=== PATIENT | female | born 1975 | race Caucasian/White ===

== ENCOUNTER 2016-07-17 12:44 | Emergency (ER) | payer MEDICAID ==
[2016-07-17 12:47] VITALS: BP 131/76; BMI 31.9
[2016-07-17] MEDS ORDERED: ADRENALINE CHL INJ IM ONE (13:29)
[2016-07-17] MEDS ORDERED: SOLU-Medrol 125 MG VIAL IVP ONE (13:29)
--- NOTE | 2016-07-17 13:32 | DR.GENAD ---
HPI - PCP Primary Care Physician: NFD - HPI Comment HPI Comment: EXPOSE TO CLEANIONG SOLUTION AND NOW EYES AND LIPS ARE SWOLLEN ANS THROAT IS TIGHT. NO SOB. - Complaint/Symptoms Chief Complaint Doctors Comments: ALLERGIC REACTION TO CLEANING SOLUTION. Chief Complaint:: PT C/O HAVING A ALLERGIC REACTION. PT STATES SHE HAVE SEVERE ALLERGIES. PT STATES SHE CHANGED HER CLEANING SUPPLIES AT HOME AND SHE BEGAN TO HAVE SWELLING IN THE EYES AND LIP SWELLING. PT STATES SHE IS ALLERGIC TO BENADRYL - Nurses notes reviewed Nurses Notes Review: Yes - Source History Provided: Patient - Mode of Arrival Mode of Arrival: Ambulatory - Timing Onset of Chief Complaint: 07/16/16 Came on: Suddenly - Duration Duration: Constant Duration: Hours PMH - PMH Past Medical History: Yes Past Medical History: Asthma Past Surgical History: Yes Surgical History: , Hysterectomy - Family History History of Family Medical Conditions: Yes Family Medical History: Diabetes Mellitus, Cancer, Heart Failure, Hypertension - Social History Does patient currently use any type of tobacco product: Yes Have you used tobacco products in the last 12 months: Yes Type of Tobacco Use: Cigarettes Does any household member use tobacco: Yes Alcohol Use: None Do you use any recreational Drugs:: No Lives With: Family Lives Where: Home - infectious screening In the last 2 months have you had wt loss of >10#?: NO Have you had fever, night sweats or hemotysis?: No Have you traveled outside the country in the last 6 months?: No Isolation: Standard ROS - Review of Systems Constitutional: No Symptoms Reported Eyes: No Symptoms Reported ENTM: No Symptoms Reported, Throat Pain (TIGHT). negative: Ear Pain, Nose Discharge, Nose Congestion, Mouth Swelling (LIPS SWOLLEN.) Respiratoy: Non-Productive Cough. negative: Short of Breath, Wheezing, Hemoptysis Cardiovascular: No Symptoms Reported. negative: Chest Pain Gastrointestinal/Abdominal: No Symptoms Reported. negative: Abdominal Pain, Diarrhea, Nausea, Vomiting Genitourinary: No Symptoms Reported. negative: Dysuria, Frequency, Hematuria Neurological: No Symptoms Reported. negative: Headache, Weakness, Dizziness Musculoskeletal: No Symptoms Reported Integumentary: No Symptoms Reported Hematologic/Lymphatic: No Symptoms Reported Endocrine: No Symptoms Reported All Other Systems: Reviewed and Negative PE - Vital Signs Vitals: Temperature 98.2 F Pulse Rate 78 Respiratory Rate 20 Blood Pressure 131/76 O2 Sat by Pulse Oximetry 96 - General Limitations: No Limitations General Appearance: Alert - Head Head Exam: Other (LIPS SWOLLEN) - Eyes Eye exam: Periorbital Swelling - ENT ENT Exam: Normal External Ear Exam External Ear Exam: Normal External Inspection TM/Canal Exam: Bilateral Normal Nose Exam: Normal Nose Exam Mouth Exam: Lip Swelling. negative: Trismus, Tongue Swelling Throat Exam: Normal Inspection. negative: Muffled Voice - Neck Neck Exam: Normal Inspection - Chest Chest Inspection: Symmetric Chest Wall Rise - Respiratory Respiratory Exam: negative: Chest Wall Tenderness, Respiratory Distress Respiratory Exam: Bilateral Rhonchi, Lower Rhonchi - Cardiovascular Cardiovascular Exam: Regular Rate, Normal Rhythm, Normal Heart Sounds - Abdominal Exam Abdominal Exam: Normal Bowel Sounds, Soft. negative: Tenderness - Extremities Extremities Exam: Normal Inspection - Back Back Exam: Normal Inspection - Neurologic Neurological Exam: Alert, Oriented X3, Normal Gait, Reflexes Normal. negative: CN II-XII Intact, Motor Sensory Deficit - Psychiatric Psychiatric Exam: Anxious - Skin Skin Exam: Erythema MDM - Differential Diagnosis Differential Diagnosis: ALLERGIC REACTION. Course - Treatment Treatment: SEE ORDERS. MED IN ED. PATIENT FEELING BETTER - Education/Counseling Education/Counseling: Patient, Education Educated On: Treatment, Diagnosis, Needs for Follow Up - Diagnosis Discharge Problem: Allergic reaction Qualifiers: Encounter type: initial encounter Qualified Code(s): T78.40XA - Allergy, unspecified, initial encounter - Discharge Plan Disposition: 01 HOME, SELF-CARE Condition: Stable Prescriptions: Methylprednisolone Dosepak 4Mg [MEDROL DOSEPAK (4 mg tab x 21)] 1 pa PO ONCE # 1 pa - Follow ups/Referrals Follow ups/Referrals: NFD,None [Primary Care Provider] - 3 days - Instructions Instructions: Allergies, [id number], Angioedema, [id number] Additional Instructions: RETURN TO ED IF WORSE.
[2016-07-17] MEDS ORDERED: SOLU-Medrol 125 MG VIAL ONE (13:45)
[2016-07-17] MEDS ORDERED: ADRENALINE CHL INJ ONE (13:45)
== END 2016-07-17 14:46 | disposition home or self-care (01) ==
LOC: ER 12:51
DX: T78.40XA Allergy, unspecified, initial encounter (principal)
CPT/HCPCS: 96365; 96372; 99283; A4222; J0170; J2930

== ENCOUNTER 2016-11-28 02:09 | Emergency (ER) | payer SELFPAY ==
[2016-11-28 02:17] VITALS: BP 134/93; BMI 30.4
[2016-11-28] MEDS ORDERED: TORADOL 60 MG VIAL IM ONE (02:34)
[2016-11-28] MEDS ORDERED: DECADRON INJ IM ONE (02:34)
[2016-11-28] MEDS ORDERED: ROCEPHIN VIAL 1 GM IM ONE (02:34)
--- NOTE | 2016-11-28 02:34 | DR.GENAD ---
HPI - PCP Primary Care Physician: NFD - HPI Comment HPI Comment: NOW THE GLANDS ARE ALSO SWOLLEN AND PAINFULL. NO FEVER. TOOK ALEVE. - Complaint/Symptoms Chief Complaint Doctors Comments: PAIN, SWELLING AND DRAINAGE FROM RIGHT EAR SINCE WEDNESDAY. Chief Complaint:: RIGHT EAR INFECTION (DRAINING); WHEEZING; SHORT OF BREATH Self Treatment fo Chief Complaint: ORTIZ'S COUGH DROP; ALEVE; OTC EAR DROPS - Nurses notes reviewed Nurses Notes Review: Yes - Source History Provided: Patient - Mode of Arrival Mode of Arrival: Ambulatory - Timing Onset of Chief Complaint: 11/24/16 Came on: Suddenly - Duration Duration: Constant Duration: Days - Severity Severity: Moderate PMH - PMH Past Medical History: Yes Past Medical History: Asthma Past Surgical History: No Surgical History: , Hysterectomy - Family History History of Family Medical Conditions: No Family Medical History: Diabetes Mellitus, Cancer, Heart Failure, Hypertension - Social History Does patient currently use any type of tobacco product: Yes Have you used tobacco products in the last 12 months: Yes Type of Tobacco Use: Cigarettes Alcohol Use: None Do you use any recreational Drugs:: Yes Lives With: Alone Lives Where: Home - infectious screening In the last 2 months have you had wt loss of >10#?: NO Have you had fever, night sweats or hemotysis?: No Have you traveled outside the country in the last 6 months?: No Isolation: Standard ROS - Review of Systems Constitutional: Fatigue. negative: Chills, Fever Eyes: No Symptoms Reported. negative: Eye Pain, Discharge ENTM: No Symptoms Reported, Ear Pain, Ear Discharge, Nose Discharge, Nose Congestion, Throat Pain (POST NASAL DRIP). negative: Hearing Loss Respiratoy: No Symptoms Reported, Productive Cough. negative: Short of Breath, Wheezing Cardiovascular: No Symptoms Reported. negative: Chest Pain Gastrointestinal/Abdominal: No Symptoms Reported. negative: Abdominal Pain, Diarrhea, Nausea, Vomiting Genitourinary: No Symptoms Reported. negative: Dysuria, Frequency, Hematuria Neurological: Headache Musculoskeletal: No Symptoms Reported, Muscle Pain (RIGHT EAR AND NECK.) Integumentary: Change in Color (RT EAR.) Hematologic/Lymphatic: No Symptoms Reported Endocrine: No Symptoms Reported All Other Systems: Reviewed and Negative PE - Vital Signs Vitals: Pulse Rate 101 Respiratory Rate 22 Blood Pressure 134/93 O2 Sat by Pulse Oximetry 97 - General Limitations: No Limitations General Appearance: Alert - Head Head Exam: Normal Inspection - Eyes Eye exam: PERRL. negative: Scleral Icterus, Conjunctival Injection - ENT ENT Exam: Normal Oropharynx. negative: Normal External Ear Exam ( INFLAMEEXTERNAL EAR.), TM's Normal Bilaterally (RT EAR CANNAL RED AND SWOLLEN. TM NOT VISUALIZE.) External Ear Exam: Pain with Movement, External Tenderness, Periauricular Adenopathy. negative: Mastoid Tenderness TM/Canal Exam: Right Erythema, Right Effusion, Right Canal Drainage, Right Canal Tenderness Nose Exam: Sinus Tenderness (FRONTAL AND NASAL) Mouth Exam: Normal Inspection Throat Exam: Tonsillar Erythema. negative: Tonsillomegaly, Tonsillar Exudate - Neck Neck Exam: Normal Inspection, Trachea Midline, Lymphadenopathy (RT POST CERVICAL NODES TENDER.). negative: Meningismus - Chest Chest Inspection: Symmetric Chest Wall Rise - Respiratory Respiratory Exam: Normal Lung Sounds Bilat Respiratory Exam: Bilateral Clear to Auscultation - Cardiovascular Cardiovascular Exam: Regular Rate, Normal Rhythm, Normal Heart Sounds - Abdominal Exam Abdominal Exam: Normal Bowel Sounds, Soft. negative: Tenderness - Extremities Extremities Exam: Normal Inspection - Back Back Exam: Normal Inspection - Neurologic Neurological Exam: Alert, Oriented X3 - Psychiatric Psychiatric Exam: Normal Affect, Normal Mood - Skin Skin Exam: Erythema MDM - Differential Diagnosis Differential Diagnosis: OTITIS MEDIA, OTITIS EXTERNAL, RT EAR DRAINAGE Course - Treatment Treatment: SEE ORDERS. - Education/Counseling Education/Counseling: Patient, Education Educated On: Treatment, Diagnosis, Needs for Follow Up - Diagnosis Discharge Problem: Ear drainage right Otitis media Qualifiers: Otitis media type: suppurative Chronicity: acute Laterality: right Recurrence: not specified as recurrent Spontaneous tympanic membrane rupture: without spontaneous rupture Qualified Code(s): H66.001 - Acute suppurative otitis media without spontaneous rupture of ear drum, right ear Otitis externa Qualifiers: Otitis externa type: diffuse Chronicity: acute Laterality: right Qualified Code (s): H60.311 - Diffuse otitis externa, right ear - Discharge Plan Disposition: 01 HOME, SELF-CARE Condition: Stable Prescriptions: Amoxicillin/Potassium Clav [Augmentin Xr 1,000-62.5 Tab] 1 tab PO Q12H #20 tab.sr Ibuprofen [MOTRIN TAB 800 MG *] 800 mg PO Q8H PRN #20 tab PRN Reason: Pain/Inflammation [id number] (Otic) [Cortisporin Otic Susp] 4 drop AFF EAR TID #1 ea - Follow ups/Referrals Follow ups/Referrals: NFD,None [Primary Care Provider] - 3 days TANNER MARKS [STAFF PHYSICIAN] - 3 days - Instructions Instructions: Ear Drainage, [id number], Otitis Media, Adult, [id number] Additional Instructions: RETURN TO ED IF WORSE.
[2016-11-28] MEDS ORDERED: TORADOL 30 MG VIAL ONE (02:36)
[2016-11-28] MEDS ORDERED: DECADRON INJ ONE (02:37)
[2016-11-28] MEDS ORDERED: ROCEPHIN VIAL 1 GM ONE (02:37)
[2016-11-28] MEDS ORDERED: TORADOL 60 MG VIAL ONE (02:38)
== END 2016-11-28 03:21 | disposition home or self-care (01) ==
LOC: ER 02:09
DX: H92.11 Otorrhea, right ear (principal); H66.001 Acute suppurative otitis media without spontaneous rupture of ear drum, right ear; H60.311 Diffuse otitis externa, right ear
CPT/HCPCS: 96372; 99282; J0696; J1100; J1885

== ENCOUNTER 2016-12-21 17:08 | Emergency (ER) | payer SELFPAY ==
[2016-12-21 17:13] VITALS: BP 123/79; BMI 30.4
--- NOTE | 2016-12-21 18:14 | DR.GENAD ---
HPI - PCP Primary Care Physician: nfd - Complaint/Symptoms Chief Complaint:: patient stated she sat on a spider 2 days ago, she stated she killed the spider. she has a hole that has tissue coming out on her right buttocks - Source History Provided: Patient - Mode of Arrival Mode of Arrival: Ambulatory - Timing Onset of Chief Complaint: 12/19/16 PMH - PMH Past Medical History: Yes Past Medical History: Asthma Past Surgical History: No Surgical History: , Hysterectomy - Family History History of Family Medical Conditions: Yes Family Medical History: Diabetes Mellitus, Cancer, Heart Failure, Hypertension - Social History Does patient currently use any type of tobacco product: Yes Have you used tobacco products in the last 12 months: Yes Type of Tobacco Use: Cigarettes How many years tobacco product used: 25 Does any household member use tobacco: No Alcohol Use: None Do you use any recreational Drugs:: No Lives With: Family Lives Where: Home - infectious screening In the last 2 months have you had wt loss of >10#?: NO Have you had fever, night sweats or hemotysis?: No Have you traveled outside the country in the last 6 months?: No Isolation: Standard ROS - Review of Systems Eyes: No Symptoms Reported ENTM: No Symptoms Reported Respiratoy: No Symptoms Reported Cardiovascular: No Symptoms Reported Gastrointestinal/Abdominal: No Symptoms Reported Genitourinary: No Symptoms Reported Neurological: No Symptoms Reported Musculoskeletal: Other (right gleutus faith with area of erythema with central scabbing c/w cellulitis) Integumentary: No Symptoms Reported Hematologic/Lymphatic: No Symptoms Reported Endocrine: No Symptoms Reported Psychiatric: No Symptoms Reported All Other Systems: Reviewed and Negative PE - Vital Signs Vitals: Temperature 98.0 F Pulse Rate 86 Respiratory Rate 16 Blood Pressure 123/79 O2 Sat by Pulse Oximetry 100 - General Limitations: No Limitations General Appearance: Alert, In No Apparent Distress - Head Head Exam: Normal Inspection, Atraumatic - Eyes Eye exam: Normal Appearance, PERRL, EOMI - ENT ENT Exam: Normal Exam, Normal Oropharynx External Ear Exam: Normal External Inspection TM/Canal Exam: Bilateral Normal Nose Exam: Normal Nose Exam, Sinus Tenderness Mouth Exam: Normal Inspection Throat Exam: Normal Inspection - Neck Neck Exam: Normal Inspection, Full ROM - Respiratory Respiratory Exam: Normal Lung Sounds Bilat Respiratory Exam: Bilateral Clear to Auscultation - Cardiovascular Cardiovascular Exam: Regular Rate, Normal Rhythm - Abdominal Exam Abdominal Exam: Normal Inspection Abdominal Tenderness: negative: RUQ, RLQ, LUQ, LLQ, Epigastrium, Suprapubic, Diffuse, Mild, Moderate, Severe, Other - Extremities Extremities Exam: Normal Inspection, Full ROM - Back Back Exam: Normal Inspection, Full ROM - Neurologic Neurological Exam: Alert, Oriented X3, CN II-XII Intact - Psychiatric Psychiatric Exam: Normal Affect - Skin Skin Exam: Warm, Rash (right gluteus faith an area of erythema with central crusting. ) - Diagnosis Discharge Problem: Cellulitis and abscess of buttock - Discharge Plan Condition: Stable - Follow ups/Referrals Follow ups/Referrals: NFD,None [Primary Care Provider] - 3 days - Instructions
[2016-12-21] MEDS ORDERED: CLEOCIN VIAL 600 MG IV ONE (18:15)
[2016-12-21] MEDS ORDERED: CLEOCIN 300 MG IV PREMIX 600 MG/100 ML BAG IV ONE (18:18)
[2016-12-21 18:19] LABS: BASOPHILS # (AUTO) 0.1 X10^3/uL (0.0-0.1); BASOPHILS % (AUTO) 0.8 % (0.2-1.0); EOSINOPHILS # (AUTO) 0.3 x10^3/uL (0.0-0.2); EOSINOPHILS % (AUTO) 3.5 % (0.9-2.9); HEMATOCRIT 40.2 % (36.0-47.0); LYMPHOCYTES # (AUTO) 2.5 X10^3/uL (1.3-2.9); LYMPHOCYTES % (AUTO) 28.5 % (21.0-51.0); MEAN CORPUSCULAR HEMOGLOBIN 29.9 pg (27.0-34.0); MEAN CORPUSCULAR HGB CONC 34.7 g/dL (33.0-35.0); MEAN PLATELET VOLUME 11.2 fL (7.4-11.0); MONOCYTES # (AUTO) 0.5 x10^3/uL (0.3-0.8); MONOCYTES % (AUTO) 6.1 % (0.0-13.0); NEUTROPHILS # (AUTO) 5.3 x10^3/uL (2.2-4.8); NEUTROPHILS % (AUTO) 61.1 % (42.0-75.0); PLATELET COUNT 185 X10^3/uL (150.0-450.0); RED BLOOD COUNT 4.67 X10^6/uL (3.5-5.4); RED CELL DISTRIBUTION WIDTH 13.2 % (11.6-16.5); WHITE BLOOD COUNT 8.7 X10^3/uL (3.6-10.0)
[2016-12-21 18:31] LABS: ALANINE AMINOTRANSFERASE 23 Units/L (12-78); ALBUMIN 3.6 g/dL (3.4-5.0); ALKALINE PHOSPHATASE 107 Units/L (46-116); ASPARTATE AMINO TRANSFERASE 18 Units/L (15-37); BLOOD UREA NITROGEN 9 mg/dL (7-18); CALCIUM 9.6 mg/dL (8.5-10.1); CARBON DIOXIDE 29.4 mmol/L (21-32); CHLORIDE 104 mmol/L (98-107); CREATININE 1.06 mg/dL (0.55-1.02); SODIUM 140 mmol/L (136-145); TOTAL PROTEIN 7.1 g/dL (6.4-8.2); eGFR BLACK RACES > 60 (>60); eGFR NON BLACK RACES > 60 (>60)
== END 2016-12-21 18:55 | disposition home or self-care (01) ==
LOC: ER 17:16
DX: L03.317 Cellulitis of buttock (principal); L02.31 Cutaneous abscess of buttock; W57.XXXA Bitten or stung by nonvenomous insect and other nonvenomous arthropods, initial encounter
CPT/HCPCS: 36415; 80053; 85025; 86140; 87070; 87077; 87186; 87205; 96365; 96374; 99282; 99283; A4222; S0077

== ENCOUNTER 2017-07-05 12:53 | Emergency (ER) | payer OTHER, MEDICAID ==
[2017-07-05 12:58] VITALS: BP 122/81; BMI 26.7
--- NOTE | 2017-07-05 14:19 | DR.EXTPAIN ---
HPI - Time seen Time seen: 14:15 - PCP Primary Care Physician: LAKESHIA - HPI Comment HPI Comment: SWELLING AND BUISING OVER KNUCKLES BELOW 4TH AND 5TH FINGERS. - Complaint/Symptoms Chief Complaint Doctor Comments: INJURY RT HAND AFTER HITTING THE WALL. Chief Complaint:: PT C/O GETTING MAD AT HER " COLE HEAD BOYFRIEND WHO HAD PTSD AND INSTEAD OF HITTING HIM I HIT THE WALL" ,, Self Treatment fo Chief Complaint: ICE, - Nurses notes reviewed Nurses Notes Review: Yes - Source History Provided: Patient - Mode of arrival Mode of Arrival: Ambulatory - Timing Onset of Chief Complaint: 07/04/17 - Context History of: None - Associated signs and symptoms Associated Signs and Symptoms: Pain, Swelling, Bruising PMH - PMH Past Medical History: No Past Medical History: Asthma Past Surgical History: Yes Surgical History: , Hysterectomy - Family History History of Family Medical Conditions: Yes Family Medical History: Diabetes Mellitus, Cancer, Heart Failure, Hypertension - Social History Does patient currently use any type of tobacco product: Yes Have you used tobacco products in the last 12 months: Yes Type of Tobacco Use: Cigarettes Does any household member use tobacco: No Alcohol Use: None Do you use any recreational Drugs:: No Lives With: Family Lives Where: Home - infectious screening In the last 2 months have you had wt loss of >10#?: NO Have you had fever, night sweats or hemotysis?: No Have you traveled outside the country in the last 6 months?: No Isolation: Standard ROS - Review of Systems Constitutional: No Symptoms Reported Eyes: No Symptoms Reported ENTM: No Symptoms Reported Respiratoy: No Symptoms Reported Cardiovascular: No Symptoms Reported Gastrointestinal/Abdominal: No Symptoms Reported Genitourinary: No Symptoms Reported Neurological: No Symptoms Reported Musculoskeletal: Right, Hand Integumentary: Change in Color, Bruises Hematologic/Lymphatic: No Symptoms Reported Endocrine: No Symptoms Reported All Other Systems: Reviewed and Negative PE - Vital Signs Vitals: Temperature 98.1 F Pulse Rate 104 Respiratory Rate 18 Blood Pressure 122/81 O2 Sat by Pulse Oximetry 98 - General Limitations: No Limitations General Appearance: Alert - Head Head Exam: Normal Inspection - Eyes Eye exam: Normal Appearance - ENT ENT Exam: Normal External Ear Exam - Neck Neck Exam: Trachea Midline - Chest Chest Inspection: Symmetric Chest Wall Rise - Respiratory Respiratory Exam: Normal Lung Sounds Bilat Respiratory Exam: Bilateral Clear to Auscultation - Cardiovascular Cardiovascular Exam: Regular Rate, Normal Rhythm, Normal Heart Sounds - Abdominal Exam Abdominal Exam: Normal Bowel Sounds, Soft. negative: Tenderness - Extremities Extremities Exam: Tenderness, Edema. negative: Full ROM (DECREASE) - Upper Extremities Shoulder Exam: Normal Inspection Hand Exam: Tenderness, Swelling. negative: Full ROM (DECREASE) - Lower Extremities Neurovascular/Tendon Exam: Normal Capillary Refill Gait Exam: Observed and Normal - Back Back Exam: Normal Inspection - Neurological Neurological Exam: Alert, Oriented X3 - Skin Skin Exam: Erythema MDM - Differential Diagnosis Differential Diagnosis: Contusion, Fracture, Sprain Course - Treatment Treatment: SEE ORDERS. - Education/Counseling Education/Counseling: Patient, Education Educated On: Diagnosis, Needs for Follow Up ROR - XRAY XRAY Interpreted by: Radiologist XRAY Findings: REPORT DISCUSS WITH PATIENT. - Diagnosis Discharge Problem: Fracture of metacarpal Qualifiers: Encounter type: initial encounter Metacarpal bone: fifth Fracture type: closed Metacarpal location: base Fracture alignment: nondisplaced Laterality: right Qualified Code(s): S62.346A - Nondisplaced fracture of base of fifth metacarpal bone, right hand, initial encounter for closed fracture - Discharge Plan Disposition: HOME, SELF-CARE Condition: Stable Prescriptions: Tramadol HCl 50 mg PO Q8H PRN #15 tablet PRN Reason: - Follow ups/Referrals Follow ups/Referrals: NFD,None [Primary Care Provider] - 1 day DAISHA NORIEGA [STAFF PHYSICIAN] - 1 day - Instructions Instructions: Metacarpal Fracture, [id number] Additional Instructions: RETURN TO ED IF WORSE.
--- NOTE | 2017-07-05 14:36 | RAD ---
History: Right hand pain after hitting a wall Study: Three views right hand, PA oblique and lateral projections Comparison: None Findings: There is a comminuted fracture at the base of the 5th metacarpal with 1 fracture line exten ding into the radial carpal joint. There is minimal overall displacement. Impression: Comminuted fractures at the base of the 5th metacarpal Reported By:
== END 2017-07-05 15:05 | disposition home or self-care (01) ==
LOC: ER 13:45
DX: S62.346A Nondisplaced fracture of base of fifth metacarpal bone, right hand, initial encounter for closed fracture (principal); X58.XXXA Exposure to other specified factors, initial encounter; Y92.9 Unspecified place or not applicable
CPT/HCPCS: 29125; 73130; 99282

== ENCOUNTER 2017-07-19 15:58 | Emergency (ER) | payer MEDICAID ==
[2017-07-19 16:12] VITALS: BP 123/73; BMI 27.0
--- NOTE | 2017-07-19 17:59 | DR.EXTPAIN ---
HPI - PCP Primary Care Physician: NFD - Complaint/Symptoms Chief Complaint:: PAIN TO RIGHT HAND S/P FX TO METACARPALS. WAS SEEN A WEEK AGO AND DX WITH SPLINT APPLIED HAS TRIED TO FOLLOW UP BUT UNSUCESSFU Self Treatment fo Chief Complaint: SPLINT AND ATTEMPTED ORTHO FOLLOW UP - Nurses notes reviewed Nurses Notes Review: Yes - Source History Provided: Patient - Mode of arrival Mode of Arrival: Ambulatory - Timing Onset of Chief Complaint: 07/12/17 PMH - PMH Past Medical History: Yes Past Medical History: Asthma Past Surgical History: Yes Surgical History: , Hysterectomy - Family History History of Family Medical Conditions: Yes Family Medical History: Diabetes Mellitus, Cancer, Heart Failure, Hypertension - Social History Type of Tobacco Use: Cigarettes Do you use any recreational Drugs:: No Lives With: Family Lives Where: Home - infectious screening In the last 2 months have you had wt loss of >10#?: NO Have you had fever, night sweats or hemotysis?: No Have you traveled outside the country in the last 6 months?: No Isolation: Standard PE - Vital Signs Vitals: Temperature 97.8 F Pulse Rate 91 Respiratory Rate 20 Blood Pressure 123/73 O2 Sat by Pulse Oximetry 99 - Discharge Plan Disposition: 01 HOME, SELF-CARE Condition: Stable - Follow ups/Referrals Follow ups/Referrals: CARLOSD,None [Primary Care Provider] - 3 days - Instructions
== END 2017-07-19 17:24 | disposition left against medical advice (07) ==
LOC: ER 15:58
DX: M79.641 Pain in right hand (principal)
CPT/HCPCS: 99281